=== PATIENT | female | born 1990 | race Hispanic/Latino ===

== ENCOUNTER 2018-03-31 13:30 | Outpatient (AMBR) | payer MEDICAID, SELFPAY ==
--- NOTE | 2018-03-07 15:14 | PT.ODAYNRPT ---
PT Outpatient Daily Note Date of Service: March 07, 2018 OP Daily Note Visit Reasons: ankle pain Outpatient Physical Therapy Treatment Date: 03/07/18 Objective: see flow sheet. Assessment: after the sci-fit used the stepper stretch for the calf while holding onto the PB for safety. pt did well with indicated by no complaints and good posture. noted pt was having more discomfort of the ankle with exercises as she would stop to shake it off. when offered pt a chair to sit and rest pt refused as she was fine. tick tocks seems to be a little more difficult due to SL WB as you WB onto the other foot. Plan: continue POC per PT. Length of Time (minutes) of Treatment: 30 Minutes Office Procedures PT Procedures PT Date of Service: 03/07/18 Therapeutic Exercise 30 minutes: Yes
--- NOTE | 2018-03-11 16:41 | PT.ODAYNRPT ---
PT Outpatient Daily Note Date of Service: March 11, 2018 OP Daily Note Visit Reasons: ankle pain Outpatient Physical Therapy Treatment Date: 03/11/18 Subjective: pt reported her ankle is in a lot of pain due to a lot of work and she stands all day. Objective: see flow sheet. Assessment: pt kept refusing to sit and rest even tho she looked to be in pain and discomfort. pt again had to shake off her ankle to due to pain a few times during exercises. pt ambulated with limping due to pain. pt was able to complete ther ex but denied increase in pain. pt was PWB on the LLE. ice pack after exercises for 10 mins. advised pt to take more seated rest breaks at work to avoid pain. Plan: continue POC per PT. Length of Time (minutes) of Treatment: 30 Minutes Office Procedures PT Procedures PT Date of Service: 03/11/18 Therapeutic Exercise 30 minutes: Yes PT Procedures PT Date of Service: 03/07/18 Therapeutic Exercise 30 minutes: Yes
--- NOTE | 2018-03-25 13:32 | PT.ODAYNRPT ---
PT Outpatient Daily Note Date of Service: March 25, 2018 OP Daily Note Visit Reasons: ankle pain Outpatient Physical Therapy Treatment Date: 03/25/18 Subjective: Pt's ankle feels much better. Pt still has difficulty climbing ladder due to weakness Objective: Please see flow chart for list of ther ex performed Assessment: tight calf muscles and weakness leading to difficulty with good calf raises Plan: Continue with PT Length of Time (minutes) of Treatment: 30 Minutes Office Procedures PT Procedures PT Date of Service: 03/11/18 Therapeutic Exercise 30 minutes: Yes PT Procedures PT Date of Service: 03/07/18 Therapeutic Exercise 30 minutes: Yes PT Procedures PT Date of Service: 03/25/18 Therapeutic Exercise 30 minutes: Yes
--- NOTE | 2018-03-29 14:04 | PT.ODAYNRPT ---
PT Outpatient Daily Note Date of Service: March 29, 2018 OP Daily Note Visit Reasons: ankle pain Outpatient Physical Therapy Treatment Date: 03/29/18 Subjective: Pt's ankle is much better. Pt stated that she was sore after last treatment session. Pt still has difficulty pushing up with the operated ankle. Objective: Please see flow chart for list of ther ex performed Assessment: tolerate exercises with minimal pain Plan: Continue with PT Length of Time (minutes) of Treatment: 30 Minutes Office Procedures PT Procedures PT Date of Service: 03/11/18 Therapeutic Exercise 30 minutes: Yes PT Procedures PT Date of Service: 03/07/18 Therapeutic Exercise 30 minutes: Yes PT Procedures PT Date of Service: 03/25/18 Therapeutic Exercise 30 minutes: Yes PT Procedures PT Date of Service: 03/29/18 Therapeutic Exercise 30 minutes: Yes
--- NOTE | 2018-03-31 14:49 | PT.ODAYNRPT ---
PT Outpatient Daily Note Date of Service: March 31, 2018 OP Daily Note Visit Reasons: ankle pain Outpatient Physical Therapy Treatment Date: 03/31/18 Subjective: pt had no complaints upon visit today. Objective: see flow sheet. Assessment: pt has discomfort/pain during WB on the LLE so she has to take breaks in between reps. asked pt if she wanted to sit and rest she can but she kept going on with the exercises. pt's balance on the board has improved from the last sessions as to less instability. no facial expressions noted during exercises as she pushes herself through the reps to complete all exercises as best she can. pt refused ice pack so advised her to use at home if needed. Plan: continue POC per PT. Length of Time (minutes) of Treatment: 30 Minutes Office Procedures PT Procedures PT Date of Service: 03/11/18 Therapeutic Exercise 30 minutes: Yes PT Procedures PT Date of Service: 03/31/18 Therapeutic Exercise 30 minutes: Yes PT Procedures PT Date of Service: 03/07/18 Therapeutic Exercise 30 minutes: Yes PT Procedures PT Date of Service: 03/25/18 Therapeutic Exercise 30 minutes: Yes PT Procedures PT Date of Service: 03/29/18 Therapeutic Exercise 30 minutes: Yes
== END 2018-04-02 23:59 ==
PROVIDERS: Visit Provider Orthopaedic Surgery
DX: I10 Essential (primary) hypertension (principal)
CPT/HCPCS: 97110